=== PATIENT | female | born 1985 | race Caucasian/White ===

== ENCOUNTER 2019-09-28 08:30 | Emergency (ER) | payer OTHER ==
[~2019-09-28] VITALS: Ht 157.5 cm; Wt 73.6 kg
[2019-09-28] MEDS ORDERED: PRED20TA PO (08:40)
[2019-09-28] MEDS ORDERED: LEVA1TAB2 PO (08:40)
[2019-09-28] MEDS ORDERED: PANT40TA3 PO (08:40)
[2019-09-28] MEDS ORDERED: FOLI1TAB11 PO (08:40)
[2019-09-28 09:22] LABS: HEMATOCRIT 30.7 % (36.0-47.0); HEMOGLOBIN 10.1 g/dl (12.0-15.5); MEAN CORPUSCULAR HEMOGLOBIN 30.4 pg (27.0-33.0); MEAN CORPUSCULAR HGB CONC 32.9 g/dl (32.0-36.5); MEAN CORPUSCULAR VOLUME 92.5 fl (80.0-96.0); RED BLOOD COUNT 3.32 10^6/uL (4.00-5.40); WHITE BLOOD COUNT 5.2 10^3/uL (4.0-10.0)
[2019-09-28 09:40] LABS: PLATELET COUNT, AUTOMATED 10 10^3/uL (150-450)
[2019-09-28 09:49] LABS: LYMPHOCYTES 86 % (16-44); MONOCYTES 1 % (0-5); NEUTROPHILS 13 % (28-66); PLATELET ESTIMATE MARKED DECREASE (NORMAL)
[2019-09-28] MEDS ORDERED: diphenhydrAMINE 25MG CAP PO ONE (10:00)
[2019-09-28] MEDS ORDERED: ACETAMINOPHEN TAB 650MG DOSE (2X325MG) PO ONE (10:00)
[2019-09-28 14:10] VITALS: BP 129/59
[2019-09-28 15:30] VITALS: BP 118/58
== END 2019-09-28 15:45 | disposition home or self-care (01) ==
LOC: M ED 08:30
DX: D69.6 Thrombocytopenia, unspecified (principal); Z90.81 Acquired absence of spleen; F17.200 Nicotine dependence, unspecified, uncomplicated; Z79.51 Long term (current) use of inhaled steroids; Z88.1 Allergy status to other antibiotic agents
CPT/HCPCS: 36430; 85025; 85049; 85055; 86900; 86901; 99284; P9036

== ENCOUNTER 2020-10-02 12:47 | Observation (INO) | payer OTHER ==
[~2020-10-02] VITALS: Ht 157.5 cm; Wt 73.5 kg
[~2020-10-02 12:47] MED LIST changes: -ABIL1TAB13 PO; -ACYC1TAB PO; -CLOB0.0548 TOP; -CLON1TAB8 PO; -CRES1CAP2 PO; -CVS10CAP7 PO; -DAPS10TA PO; -DIPH25CA32 PO; -DIVA250T67 PO; -DOXE10CA PO; -FLUO40CA PO; -GABA-282 PO; -HYDR-4468 PO; -HYDR1CAP25 PO; -HYDR2TAB2 PO; -LEVO500T3 PO; -LINE1TAB6; -LORA-622 PO; -METO5TAB2 PO; -MIRT-62 PO; -MORP-69 PO; -ONDA8TAB10 PO; -PROP40TA62 PO; -PROT0.1O TOP; -SFHHYD1CR TOP; -VENC100T PO
[2020-10-02] MEDS ORDERED: DIVA250T67 PO (14:52)
[2020-10-02] MEDS ORDERED: PROP40TA62 PO (14:52)
[2020-10-02] MEDS ORDERED: CLON1TAB8 PO (14:52)
[2020-10-02] MEDS ORDERED: ACYC1TAB PO (14:52)
[2020-10-02] MEDS ORDERED: ONDA8TAB10 PO (14:56)
[2020-10-02] MEDS ORDERED: LINE1TAB6 (14:56)
[2020-10-02] MEDS ORDERED: GABA-282 PO (14:56)
[2020-10-02] MEDS ORDERED: VENC100T PO (14:56)
[2020-10-02] MEDS ORDERED: METO5TAB2 PO (14:56)
[2020-10-02] MEDS ORDERED: MORP-69 PO (14:56)
[2020-10-02] MEDS ORDERED: HYDR-4468 PO ×2 (14:56→17:27)
[2020-10-02] MEDS ORDERED: FLUO40CA PO (14:56)
[2020-10-02] MEDS ORDERED: DOXE10CA PO (14:56)
--- NOTE | 2020-10-02 17:02 | HPEPDOC ---
General Date of Admission Oct 02, 2020 at 12:48 Date of Service: Oct 02, 2020 Chief Complaint The patient is a 35-year-old female admitted with a reason for visit of Anemia, Severe Thrombocytopenia. Source: Patient History of Present Illness Mrs. 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 She is currently being treated at [facility] ([phone] Tena. Can also ask for Barb). She is on Cycle 3 Decitabine + Venetoclax 09/25/20. Afterwards, she usually feels fatigued. She is here visiting on vacations and came in to have her labs check. Her goal Hgb is 8 and her goal platelet is 50. She is below goal with Hgb 7.7 and platelet of 13. Patient otherwise feels fine. Denies fever, chest pain, dyspnea, abdominal pain, diarrhea, or dysuria. Otherwise, she requires irradiated and leuko-reduced blood and irradiated platelets from [facility]. Blood and platelets will take about 3 hours to arrive. Patient will be place in observation for transfusions. Of note, I spoke with Lindsay from [facility] who got in touch with Dr. Tena. Did not recommend Neupogen at this time. They are okay with her neutropenia. They also requested that we continued Venetoclax. Home Medications Scheduled Acyclovir (Acyclovir) 400 Mg Tablet, 400 MG PO BID, (Reported) Aripiprazole (Abilify) 2 Mg Tablet, 2 MG PO QHS, (Reported) Clonazepam (Clonazepam) 1 Mg Tablet, 1 MG PO BID, (Reported) Dapsone (Dapsone) 100 Mg Tablet, 100 MG PO DAILY, (Reported) Divalproex Sodium (Divalproex Sodium) 250 Mg Tablet.dr, 750 MG PO BID, (Repor benito) Fluoxetine Hcl (Fluoxetine HCl) 40 Mg Capsule, 40 MG PO DAILY, (Reported) Gabapentin (Gabapentin) 300 Mg Capsule, 300 MG PO TID, (Reported) Hydrocortisone (Hydrocortisone) 10 Mg Tablet, 20 MG PO DAILY, (Reported) 20MG IN THE MORNING, 10MG IN THE EVENING Hydrocortisone (Hydrocortisone) 10 Mg Tablet, 10 MG PO QPM, (Reported) 20MG IN THE MORNING, 10MG IN THE EVENING Isavuconazonium Sulfate (Cresemba) 186 Mg Capsule, 372 MG PO QHS, (Reported) Levofloxacin (Levofloxacin) 500 Mg Tablet, 500 MG PO DAILY, (Reported) Loratadine (Loratadine) 10 Mg Tablet, 10 MG PO QHS, (Reported) Mirtazapine (Remeron) 15 Mg Tablet, 15 MG PO QHS, (Reported) Pantoprazole Sodium (Pantoprazole Sodium) 40 Mg Tablet.dr, 40 MG PO DAILY, (Reported) Propranolol HCl (Propranolol HCl) 40 Mg Tablet, 40 MG PO BID, (Reported) HOLD FOR SBP < 100 Venetoclax (Venclexta) 100 Mg Tablet, 200 MG PO QPM, (Reported) Scheduled PRN Clobetasol Propionate/Emoll (Clobetasol Emollient 0.05% Crm) 0.05% 15GM Cream..g., 1 DOSE TOP BID PRN for RASH/ITCHING, (Reported) APPLY TO LEGS Diphenhydramine HCl (Diphenhydramine HCl) 25 Mg Capsule, 25 MG PO DAILY PRN for ITCHING, (Reported) TO BE TAKEN BEFORE RECEIVING BLOOD PRODUCTS Doxepin HCl (Doxepin HCl) 10 Mg Capsule, 10 MG PO QHS PRN for ITCHING, (Reported) Hydrocortisone (Hydrocortisone) 28 Gm Cream..g., 1 DOSE TOP BID PRN for REDNESS/IRRITATION, (Reported) APPLY TO AFFECTED AREAS Hydromorphone HCl (Hydromorphone HCl) 2 Mg Tablet, 1 MG PO TID PRN for PAIN LEVEL 8-10, (Reported) Hydroxyzine Pamoate (Hydroxyzine Pamoate) 25 Mg Capsule, 25 MG PO TID PRN for ANXIETY, (Reported) Melatonin (Melatonin) 10 Mg Capsule, 10 MG PO QHS PRN for SLEEP, (Reported) Metoclopramide HCl (Metoclopramide HCl) 5 Mg Tablet, 5 MG PO AC PRN for ABDOMINAL PAIN, (Reported) Morphine Sulfate (Morphine Sulfate ER) 15 Mg Tablet.er, 15 MG PO BID PRN for PAIN LEVEL 5-7, (Reported) Ondansetron HCl (Ondansetron HCl) 8 Mg Tablet, 8 MG PO TID PRN for NAUSEA OR VOMITING, (Reported) Tacrolimus (Protopic) 100 Gm Oint...g., 1 DOSE TOP BID PRN for SKIN GVHD, (Reported) APPLY TO LEGS Allergies Coded Allergies: Sulfa (Sulfonamide Antibiotics) (Verified Allergy, Mild, rash, 09/28/19) clindamycin (Verified Allergy, Mild, rash, 09/28/19) piperacillin (Verified Allergy, Mild, puffy eyes , 10/02/20) tazobactam (Verified Allergy, Mild, puffy eyes , 10/02/20) Past Medical History Medical History 1. ITP since the age of 14 2. 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 Chiari malformation 6. History of ICH Surgical History 1. Splenectomy 2. Breast reduction 3. Emergency Family History Father: History of HBP Mother: History of HBP Social History * Smoker: Denies Alcohol: Denies Drugs: denies A-FIB/CHADSVASC A-FIB History Current/History of A-Fib/PAF?: No Review of Systems Constitutional: Reports: Fatigue; Denies: Chills, Fever Eyes: Denies: Vision change ENT: Denies: Sore Throat Skin: Reports: Rash (GVHD of legs) Pulmonary: Denies: Dyspnea Cardiovascular: Denies: Chest Pain Gastrointestinal: Denies: Abdominal Pain, Diarrhea Genitourinary: Denies: Dysuria Neurological: Denies: Numbness Psych: Denies: Anxiety, Depression Physical Examination General Exam: Positive: Alert, Cooperative Eye Exam: Positive: EOMI; Negative: Sclera icteric ENT Exam: Positive: Atraumatic Neck Exam: Positive: Supple Chest Exam: Positive: Clear to auscultation; Negative: Rales, Rhonchi, Wheezing Heart Exam: Positive: Rate Normal, Regular Rhythm Abdomen Exam: Positive: Normal bowel sounds, Soft; Negative: Tenderness Extremity Exam: Positive: Edema Skin Exam: Positive: Rash (bilateral legs) Neuro Exam: Positive: Normal Speech, Cranial Nerves 3-12 NL Psych Exam: Positive: Mental status NL, Mood NL Vital Signs Vital Signs Date Time Temp Pulse Resp B/P (MAP) Pulse Ox O2 Delivery O2 Flow Rate FiO2 10/02/20 15:10 95 142/102 (115) 10/02/20 12:49 98.2 20 99 Room Air Laboratory Data Labs 24H Laboratory Tests 2 10/02/20 15:37: Assessment/Plan Mrs. 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 Patient most likely has chemotherapy induced pancytopenia. Otherwise patient feels fatigued. She is tolerated food. Patient will be transfused blood and platelets. Plan / VTE VTE Prophylaxis Ordered?: No VTE Exclusion Mechanical Proph: Bilateral Lower Ex Trauma VTE Exclusion Pharmacological: Thrombocytopenia Plan Plan 1. Chemo-induced pancytopenia -Goal Hgb 8 and goal platelet 50 per [facility] -Will transfused leukoreduced and irradiated blood and irradiated platelets. Will need to come from [facility] -Otherwise spoke with [facility]. They are okay with her neutropenia. No Neupogen. Requested that we continue her Venetoclax (patient own med) -Continue acyclovir, isavuconazonium (patient own med), and levofloxacin 2. Primary myelofibrosis converted to AML -Being managed at [facility] 3. ITP complicate by history of ICH -Transfusing irradiated platelets -No chemical DVT ppx -Continue hydrocortisone 4. 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 History of ICH -Continue divalproex -No anticoagulation 6. DVT ppx -Due to recent ICH, no heparin or enoxaparin -Due to GVHD of legs, no SCD or TEDs Disposition: Patient to be transfused blood and platelets from [facility]. Possible discharge home tomorrow HEATHER MOORE DO Oct 02, 2020 16:58
[2020-10-02 17:12] LABS: RSV AMPLIFICATION NEGATIVE (NEGATIVE)
[2020-10-02] MEDS ORDERED: MIRT-62 PO (17:27)
[2020-10-02] MEDS ORDERED: CVS10CAP7 PO (17:27)
[2020-10-02] MEDS ORDERED: HYDR1CAP25 PO (17:27)
[2020-10-02] MEDS ORDERED: DIPH25CA32 PO (17:27)
[2020-10-02] MEDS ORDERED: HYDR2TAB2 PO (17:27)
[2020-10-02] MEDS ORDERED: CRES1CAP2 PO (17:27)
[2020-10-02] MEDS ORDERED: SFHHYD1CR TOP (17:27)
[2020-10-02] MEDS ORDERED: LEVO500T3 PO (17:27)
[2020-10-02] MEDS ORDERED: DAPS10TA PO (17:27)
[2020-10-02] MEDS ORDERED: ABIL1TAB13 PO (17:27)
[2020-10-02] MEDS ORDERED: LORA-622 PO (17:27)
[2020-10-02] MEDS ORDERED: CLOB0.0548 TOP (17:27)
[2020-10-02] MEDS ORDERED: PROT0.1O TOP (17:27)
[2020-10-02] MEDS ORDERED: diphenhydrAMINE 25MG CAP PO PRN (17:40)
[2020-10-02] MEDS ORDERED: hydrOXYzine 25 MG TAB PO PRN (17:40)
[2020-10-02] MEDS ORDERED: MORPHINE 15 MG SA TAB PO PRN (17:40)
[2020-10-02] MEDS ORDERED: HYDROmorphone 2 MG TAB PO PRN (17:40)
[2020-10-02] MEDS ORDERED: CLOBETASOL PROPIONATE EMOLLIENT 0.05% CR 60 GM TOP PRN (17:40)
[2020-10-02] MEDS ORDERED: METOCLOPRAMIDE 5 MG TAB PO PRN (17:40)
[2020-10-02] MEDS ORDERED: HYDROCORTISONE 1% CREAM 30 GM TOP PRN (17:40)
[2020-10-02] MEDS ORDERED: RAMELTEON 8 MG TAB (ROZEREM) PO PRN (17:40)
[2020-10-02] MEDS ORDERED: ONDANSETRON 4 MG TAB PO PRN (17:40)
[2020-10-02] MEDS ORDERED: HYDROCORTISONE 10 MG TAB PO SCH (18:00)
[2020-10-02] MEDS ORDERED: PILL CUTTER 1 EACH XX PRN (18:25)
[2020-10-02 18:55] VITALS: BP 153/109
[2020-10-02] MEDS ORDERED: LORATADINE 10 MG TAB PO SCH (21:00)
[2020-10-02] MEDS ORDERED: ARIPiprazole 2 MG TAB PO SCH (21:00)
[2020-10-02] MEDS ORDERED: ENTER DRUG NAME HERE (PATIENT'S OWN MED) TOP SCH (21:00)
[2020-10-02] MEDS ORDERED: MIRTAZAPINE 15 MG TAB PO SCH (21:00)
[2020-10-02] MEDS ORDERED: ENTER DRUG NAME HERE (PATIENT'S OWN MED) PO SCH ×2 (21:00)
[2020-10-02] MEDS: ACYCLOVIR 200 MG CAPSULE PO SCH (21:13)
[2020-10-02] MEDS: GABAPENTIN 300 MG CAP PO SCH (21:14)
[2020-10-02] MEDS: clonazePAM 1 MG TAB PO SCH (21:14)
[2020-10-02] MEDS: PROPRANOLOL 20 MG TAB PO SCH (21:16)
[2020-10-02] MEDS: DIVALPROEX 250 MG TAB PO SCH (21:17)
[2020-10-02] MEDS ORDERED: diphenhydrAMINE 50MG/ML VIAL (J1200) IV ONE (21:35)
[2020-10-02 22:00] VITALS: BP 133/74
[2020-10-02] MEDS: ACETAMINOPHEN TAB 650MG DOSE (2X325MG) PO PRN (22:52)
[2020-10-03] VITALS (12 sets, daily range): BP systolic 127–154; BP diastolic 81–115
[2020-10-03] MEDS ORDERED: LevoFLOXacin 500 MG TABLET PO SCH (06:00)
[2020-10-03] MEDS ORDERED: HYDROCORTISONE 10 MG TAB PO SCH (08:00)
[2020-10-03] MEDS ORDERED: DAPSONE 100 MG TAB PO SCH (09:00)
[2020-10-03] MEDS ORDERED: diphenhydrAMINE 50MG/ML VIAL (J1200) IM ONE (09:00)
[2020-10-03] MEDS ORDERED: FLUoxetine 20 MG CAP PO SCH (09:00)
[2020-10-03] MEDS ORDERED: PANTOPRAZOLE 40MG TAB (PROTONIX) PO SCH (09:00)
[2020-10-03] MEDS ORDERED: diphenhydrAMINE 50MG/ML VIAL (J1200) IV ONE (09:30)
[2020-10-03] MEDS: ACETAMINOPHEN TAB 650MG DOSE (2X325MG) PO PRN (09:48)
[2020-10-03] MEDS: clonazePAM 1 MG TAB PO SCH (10:42)
[2020-10-03] MEDS: GABAPENTIN 300 MG CAP PO SCH (10:43)
[2020-10-03] MEDS: DIVALPROEX 250 MG TAB PO SCH (10:43)
[2020-10-03] MEDS: ACYCLOVIR 200 MG CAPSULE PO SCH (10:43)
[2020-10-03] MEDS: PROPRANOLOL 20 MG TAB PO SCH (10:45)
[2020-10-03 13:47] LABS: HEMATOCRIT 24.3 % (36.0-47.0); HEMOGLOBIN 8.1 g/dl (12.0-15.5); MEAN CORPUSCULAR HEMOGLOBIN 30.3 pg (27.0-33.0); MEAN CORPUSCULAR HGB CONC 33.3 g/dl (32.0-36.5); RED BLOOD COUNT 2.67 10^6/uL (4.00-5.40)
[2020-10-03 13:56] LABS: PLATELET COUNT, AUTOMATED 60 10^3/uL (150-450); WHITE BLOOD COUNT 0.4 10^3/uL (4.0-10.0)
[2020-10-03 14:07] LABS: BLOOD UREA NITROGEN 11 MG/DL (7-18); CALCIUM LEVEL 7.7 MG/DL (8.5-10.1); CARBON DIOXIDE LEVEL 27 MEQ/L (21-32); CHLORIDE LEVEL 111 MEQ/L (98-107); CREATININE FOR GFR 0.42 MG/DL (0.55-1.30); GLOMERULAR FILTRATION RATE > 60.0 (>60); GLUCOSE, FASTING 89 MG/DL (70-100); POTASSIUM SERUM 3.8 MEQ/L (3.5-5.1); SODIUM LEVEL 145 MEQ/L (136-145)
--- NOTE | 2020-10-03 15:30 | DS.PDOC ---
Discharge Summary General Date of Admission Oct 02, 2020 at 12:48 Date of Discharge 10/03/2020 Attending Physician: BELLA KUHN DO Discharge Summary PROCEDURES PERFORMED DURING STAY: 2 transfusions of irradiated platelets and 1 transfusion of irradiated blood ADMITTING DIAGNOSES: 1. Chemotherapy-induced pancytopenia. 2. Primary myelofibrosis converted to AML 3. ITP complicated by history of intracranial hemorrhage 4. Scwac-[id number]-ggkh disease due to bone marrow transplant 5. History of intracranial hemorrhage DISCHARGE DIAGNOSES: 1. Chemotherapy-induced pancytopenia, improved 2. Primary myelofibrosis converted to AML 3. ITP complicated by history of intracranial hemorrhage 4. [id number] disease due to bone marrow transplant 5. History of intracranial hemorrhage COMPLICATIONS/CHIEF COMPLAINT: Anemia, Severe Thrombocytopenia. HISTORY OF PRESENT ILLNESS: Patient is a 35-year-old female with ITP, primary myelofibrosis with converted to AML status post bone marrow transplant in March 2020 who presents with abnormal labs. Patient was found to be oliveros cytopenic. Patient is currently on cycle 3 of this to have been plus Bentyl plaques with her last cycle being on 09/25/2020. Patient usually feels fatigued. Patient is vacationing in [place], [place] when she came in to get her labs done and was found to have abnormal labs and was told to come to the emergency department. Patient's oncologist was contacted who recommended giving 2 units of platelets and 1 unit of packed red blood cells with a goal of getting her hemoglobin to 8 and her platelets to 50. They did not want any Neupogen and they wanted to continue with her home medications. HOSPITAL COURSE: Patient received her 2 transfusions of platelets and 1 transfusion of packed red blood cells and her hemoglobin came above the goals that were set by her oncologist. I spoke with her oncology practice who recommended that the patient can be discharged. Patient was deemed ready for discharge on 10/03/2020 and was discharged home. DISCHARGE MEDICATIONS: Please see below. ALLERGIES: Please see below. PHYSICAL EXAMINATION ON DISCHARGE: VITAL SIGNS: Please see below. General: Alert and oriented female patient who is laying in bed while walking to the room. Patient did not appear to be in any acute distress. HEENT: Normocephalic, atraumatic, moist mucous membranes. Neck: No lymphadenopathy or thyromegaly Cardiac: Regular rate and rhythm, no murmurs, normal S1, normal S2 Pulm: Clear to auscultation bilaterally. No wheezes, rhonchi, rales Abd: Nondistended, nontender to palpation, normal bowel sounds Ext: No edema bilateral lower extremities LABORATORY DATA: Please see below. IMAGING: No imaging was performed during her hospitalization PROGNOSIS: Fair ACTIVITY: As tolerated. DIET: Neutropenic diet DISCHARGE PLAN: Discharge home DISCHARGE INSTRUCTIONS: 1. Follow-up with your oncologist within 3 to 5 days. 2. Follow-up with your primary care provider within 5 to 7 days. ITEMS TO FOLLOWUP ON ON OUTPATIENT: 1. Continue to follow the patient's blood counts. DISCHARGE CONDITION: Stable. TIME SPENT ON DISCHARGE: Greater than 30 minutes. Vital Signs/I&Os Vital Signs Date Time Temp Pulse Resp B/P (MAP) Pulse Ox O2 Delivery O2 Flow Rate FiO2 10/03/20 14:00 98.2 103 17 144/87 (106) 92 Room Air I&O- Last 24 Hours up to 6 AM 10/03/20 05:59 Intake Total 1494 ml Balance 1494 ml Laboratory Data Labs 24H Laboratory Tests 2 10/02/20 15:37: Coronavirus (COVID-19)(PCR) NEGATIVE, Influenza Type A (RT-PCR) NEGATIVE, In fluenza Type B (RT-PCR) NEGATIVE, Respiratory Syncytial Virus (PCR) NEGATIVE 10/03/20 13:22: Nucleated Red Blood Cells % (auto) 0.0, Immature Platelet Fraction 1.0, Anion Gap 7L, Glomerular Filtration Rate > 60.0, Calcium Level 7.7L CBC/BMP Laboratory Tests 10/03/20 13:22 Discharge Medications Scheduled Acyclovir (Acyclovir) 400 Mg Tablet, 400 MG PO BID, (Reported) Aripiprazole (Abilify) 2 Mg Tablet, 2 MG PO QHS, (Reported) Clonazepam (Clonazepam) 1 Mg Tablet, 1 MG PO BID, (Reported) Dapsone (Dapsone) 100 Mg Tablet, 100 MG PO DAILY, (Reported) Divalproex Sodium (Divalproex Sodium) 250 Mg Tablet.dr, 750 MG PO BID, (Reported) Fluoxetine Hcl (Fluoxetine HCl) 40 Mg Capsule, 40 MG PO DAILY, (Reported) Gabapentin (Gabapentin) 300 Mg Capsule, 300 MG PO TID, (Reported) Hydrocortisone (Hydrocortisone) 10 Mg Tablet, 20 MG PO DAILY, (Reported) 20MG IN THE MORNING, 10MG IN THE EVENING Hydrocortisone (Hydrocortisone) 10 Mg Tablet, 10 MG PO QPM, (Reported) 20MG IN THE MORNING, 10MG IN THE EVENING Isavuconazonium Sulfate (Cresemba) 186 Mg Capsule, 372 MG PO QHS, (Reported) Levofloxacin (Levofloxacin) 500 Mg Tablet, 500 MG PO DAILY, (Reported) Loratadine (Loratadine) 10 Mg Tablet, 10 MG PO QHS, (Reported) Mirtazapine (Remeron) 15 Mg Tablet, 15 MG PO QHS, (Reported) Pantoprazole Sodium (Pantoprazole Sodium) 40 Mg Tablet.dr, 40 MG PO DAILY, (Reported) Propranolol HCl (Propranolol HCl) 40 Mg Tablet, 40 MG PO BID, (Reported) HOLD FOR SBP < 100 Venetoclax (Venclexta) 100 Mg Tablet, 200 MG PO QPM, (Reported) Scheduled PRN Clobetasol Propionate/Emoll (Clobetasol Emollient 0.05% Crm) 0.05% 15GM Cream..g., 1 DOSE TOP BID PRN for RASH/ITCHING, (Reported) APPLY TO LEGS Diphenhydramine HCl (Diphenhydramine HCl) 25 Mg Capsule, 25 MG PO DAILY PRN for ITCHING, (Reported) TO BE TAKEN BEFORE RECEIVING BLOOD PRODUCTS Doxepin HCl (Doxepin HCl) 10 Mg Capsule, 10 MG PO QHS PRN for ITCHING, (Reported) Hydrocortisone (Hydrocortisone) 28 Gm Cream..g., 1 DOSE TOP BID PRN for REDNESS/IRRITATION, (Reported) APPLY TO AFFECTED AREAS Hydromorphone HCl (Hydromorphone HCl) 2 Mg Tablet, 1 MG PO TID PRN for PAIN LEVEL 8-10, (Reported) Hydroxyzine Pamoate (Hydroxyzine Pamoate) 25 Mg Capsule, 25 MG PO TID PRN for ANXIETY, (Reported) Melatonin (Melatonin) 10 Mg Capsule, 10 MG PO QHS PRN for SLEEP, (Reported) Metoclopramide HCl (Metoclopramide HCl) 5 Mg Tablet, 5 MG PO AC PRN for ABDOMINAL PAIN, (Reported) Morphine Sulfate (Morphine Sulfate ER) 15 Mg Tablet.er, 15 MG PO BID PRN for PAIN LEVEL 5-7, (Reported) Ondansetron HCl (Ondansetron HCl) 8 Mg Tablet, 8 MG PO TID PRN for NAUSEA OR VOMITING, (Reported) Tacrolimus (Protopic) 100 Gm Oint...g., 1 DOSE TOP BID PRN for SKIN GVHD, (Reported) APPLY TO LEGS Allergies Coded Allergies: Sulfa (Sulfonamide Antibiotics) (Verified Allergy, Mild, rash, 09/28/19) clindamycin (Verified Allergy, Mild, rash, 09/28/19) piperacillin (Verified Allergy, Mild, puffy eyes , 10/02/20) tazobactam (Verified Allergy, Mild, puffy eyes , 10/02/20) BELLA KUHN DO Oct 03, 2020 15:30
== END 2020-10-03 15:50 | disposition home or self-care (01) ==
LOC: M ED 12:47 → M ED INP 12:48 → M MS5PR 19:05
PROVIDERS: ADMIT Internal Medicine; ATTEND Family Medicine
DX: D61.810 Antineoplastic chemotherapy induced pancytopenia (principal); D75.81 Myelofibrosis; C92.A0 Acute myeloid leukemia with multilineage dysplasia, not having achieved remission; D69.3 Immune thrombocytopenic purpura; Z86.79 Personal history of other diseases of the circulatory system; D89.813 Graft-versus-host disease, unspecified; Z79.899 Other long term (current) drug therapy; Z88.2 Allergy status to sulfonamides; Z88.0 Allergy status to penicillin; Z88.1 Allergy status to other antibiotic agents
CPT/HCPCS: 36430; 80048; 85027; 85049; 85055; 86850; 86900; 86901; 86920; 87631; 96374; 96376; 99284; J1200; P9036; P9040

== ENCOUNTER → 2020-10-02 | Outpatient (CLI) | payer OTHER ==
[~2020-10-02] MED LIST: ABIL1TAB13 PO; ACYC1TAB PO; CLOB0.0548 TOP; CLON1TAB8 PO; CRES1CAP2 PO; CVS10CAP7 PO; DAPS10TA PO; DIPH25CA32 PO; DIVA250T67 PO; DOXE10CA PO; FLUO40CA PO; FOLI1TAB11 PO; GABA-282 PO; HYDR-4468 PO; HYDR1CAP25 PO; HYDR2TAB2 PO; LEVA1TAB2 PO; LEVO500T3 PO; LINE1TAB6; LORA-622 PO; METO5TAB2 PO; MIRT-62 PO; MORP-69 PO; ONDA8TAB10 PO; PANT40TA29 PO; PRED20TA PO; PROP40TA62 PO; PROT0.1O TOP; SFHHYD1CR TOP; VENC100T PO
[2020-10-02 12:13] LABS: HEMATOCRIT 23.9 % (36.0-47.0); HEMOGLOBIN 7.7 g/dl (12.0-15.5); LYMPH # 0.4 10^3/uL (1.5-5.0); LYMPH % 94.7 % (24.0-44.0); MEAN CORPUSCULAR HEMOGLOBIN 30.4 pg (27.0-33.0); MEAN CORPUSCULAR HGB CONC 32.2 g/dl (32.0-36.5); MEAN CORPUSCULAR VOLUME 94.5 fl (80.0-96.0); MONO % 2.6 % (2.0-8.0); NEUTROPHILS % 2.7 % (36.0-66.0); RED BLOOD COUNT 2.53 10^6/uL (4.00-5.40)
[2020-10-02 12:21] LABS: PLATELET COUNT, AUTOMATED 13 10^3/uL (150-450); WHITE BLOOD COUNT 0.4 10^3/uL (4.0-10.0)
[2020-10-02 12:49] LABS: ALBUMIN 2.7 GM/DL (3.2-5.2); ALT/SGPT 17 U/L (12-78); BILIRUBIN,TOTAL 0.5 MG/DL (0.2-1.0); BLOOD UREA NITROGEN 14 MG/DL (7-18); CALCIUM LEVEL 7.9 MG/DL (8.5-10.1); CARBON DIOXIDE LEVEL 26 MEQ/L (21-32); CHLORIDE LEVEL 110 MEQ/L (98-107); GLOMERULAR FILTRATION RATE > 60.0 (>60); GLUCOSE, FASTING 97 MG/DL (70-100); LDH LACTATE DEHYDROGENASE 437 U/L (84-246); POTASSIUM SERUM 3.6 MEQ/L (3.5-5.1); SODIUM LEVEL 143 MEQ/L (136-145); TOTAL PROTEIN 5.6 GM/DL (6.4-8.2)
== END ==
LOC: M LAB 11:22
DX: C92.00 Acute myeloblastic leukemia, not having achieved remission (principal); S06.899A Other specified intracranial injury with loss of consciousness of unspecified duration, initial encounter; X58.XXXA Exposure to other specified factors, initial encounter; Y92.9 Unspecified place or not applicable

== ENCOUNTER 2020-10-05 10:01 | Observation (INO) | payer OTHER ==
[~2020-10-05] VITALS: Ht 157.5 cm; Wt 73.8 kg
[~2020-10-05 10:01] MED LIST changes: +ABIL1TAB13 PO; +ACYC1TAB PO; +CLOB0.0548 TOP; +CLON1TAB8 PO; +CRES1CAP2 PO; +CVS10CAP7 PO; +DAPS10TA PO; +DIPH25CA32 PO; +DIVA250T67 PO; +DOXE10CA PO; +FLUO40CA PO; +GABA-282 PO; +HYDR-4468 PO; +HYDR1CAP25 PO; +HYDR2TAB2 PO; +LEVO500T3 PO; +LINE1TAB6; +LORA-622 PO; +METO5TAB2 PO; +MIRT-62 PO; +MORP-69 PO; +ONDA8TAB10 PO; +PROP40TA62 PO; +PROT0.1O TOP; +SFHHYD1CR TOP; +VENC100T PO
[2020-10-05 11:22] LABS: HEMATOCRIT 21.2 % (36.0-47.0); LYMPH # 0.3 10^3/uL (1.5-5.0); LYMPH % 84.2 % (24.0-44.0); MEAN CORPUSCULAR HGB CONC 32.5 g/dl (32.0-36.5); MEAN CORPUSCULAR VOLUME 92.2 fl (80.0-96.0); MONO # 0.1 10^3/uL (0.0-0.8); MONO % 13.2 % (2.0-8.0); NEUTROPHILS % 2.6 % (36.0-66.0)
[2020-10-05 11:31] LABS: HEMOGLOBIN 6.9 g/dl (12.0-15.5); PLATELET COUNT, AUTOMATED 11 10^3/uL (150-450); WHITE BLOOD COUNT 0.4 10^3/uL (4.0-10.0)
--- NOTE | 2020-10-05 14:05 | HPE ---
HISTORY AND PHYSICAL DATE OF ADMISSION: 10/05/2020 HISTORY OF PRESENT ILLNESS: Maru Wiggins is a 35-year-old who has a history of ITP, primary myelofibrosis, which converted to AML now status post bone marrow transplant in March 2020. 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 She also has a history of Chiari malformation and history of intracranial hemorrhage. Has had a recurrent problem with pancytopenia. She is on cycle three of decitabine plus venetoclax with last dose 09/25/2020. She was just admitted 09/02/2020, for pancytopenia, received platelets with blood and was discharged. She had labs today that showed significant pancytopenia and she is being admitted for more blood and platelets. She is not having any fever, chills, cough, frequency, urgency, dysuria, diarrhea, sore throat, epistaxis, rectal bleeding, or urinary bleeding. PAST SURGICAL HISTORY: 1. Splenectomy. 2. Mammoplasty. 3. . MEDICATIONS: 1. Acyclovir 40 mg b.i.d. 2. Abilify 2 mg q. h.s. 3. Clonazepam 1 mg b.i.d. 4. Dapsone 100 mg daily. 5. Divalproex acid 750 mg b.i.d. 6. Gabapentin 300 mg t.i.d. 7. Hydrocortisone 20 mg in the morning and 10 mg in the evening. 8. Cresemba 186 mg capsules, 372 mg q. h.s. 9. Levaquin 500 mg daily. 10. Loratadine 10 mg daily. 11. Remeron 15 mg q. h.s. 12. Protonix 40 mg daily. 13. Propranolol 40 mg b.i.d. 14. Venclexta 200 mg at bedtime. ALLERGIES: SULFA CAUSED A RASH. CLINDAMYCIN CAUSED A RASH. PIPERACILLIN CAUSED PUFFINESS AROUND HER EYES. TAZOBACTAM CAUSED PUFFINESS AROUND HER EYES ON 10/02/2020. FAMILY HISTORY: Both parents had hypertension. SOCIAL HISTORY: Does not smoke or drink any alcohol. PHYSICAL EXAMINATION: VITAL SIGNS: Afebrile 97.7, blood pressure 169/117, pulse 105, respiratory rate 20, 99% O2 saturation. GENERAL: She is lying in bed in no distress. HEENT: Unremarkable. NECK: Supple. LUNGS: Clear. HEART: Regular without murmur. ABDOMEN: Soft and nontender with no masses. EXTREMITIES: No peripheral edema. SKIN: No rash. NEUROLOGIC: Nonfocal. LABORATORY DATA: White count 0.4. Hemoglobin 6.9, platelets 11,000 (discharge hemoglobin was 8.1 and discharge platelets were 60,000). Sodium 135, potassium 3.8, BUN 11, creatinine 0.4, glucose 89. COVID test was negative on 10/02. 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 PLAN: She will be admitted to the observation bed. We have ordered blood product through the emergency room. She needs leukocyte reduced and irradiated blood and irradiated platelets. These have already been ordered by the emergency room. They previously have not wanted Neupogen or other stimulating factors for her neutropenia. We will continue her usual medications.
[2020-10-05] MEDS ORDERED: diphenhydrAMINE 25MG CAP PO PRN (14:45)
[2020-10-05] MEDS ORDERED: hydrOXYzine 25 MG TAB PO PRN (14:45)
[2020-10-05] MEDS ORDERED: ONDANSETRON 4 MG TAB PO PRN (14:45)
[2020-10-05] MEDS ORDERED: HYDROCORTISONE 1% CREAM 30 GM TOP PRN (14:45)
[2020-10-05] MEDS ORDERED: CLOBETASOL PROPIONATE EMOLLIENT 0.05% CR 60 GM TOP PRN (14:45)
[2020-10-05] MEDS ORDERED: METOCLOPRAMIDE 5 MG TAB PO PRN (14:45)
[2020-10-05] MEDS ORDERED: **NOTE PATIENT COMMENT** MISC XX SCH (14:45)
[2020-10-05] MEDS ORDERED: PROTOPIC TOP PRN (15:35)
[2020-10-05] MEDS ORDERED: PILL CUTTER 1 EACH XX ONE (16:18)
[2020-10-05] MEDS: HYDROmorphone 2 MG TAB PO PRN (16:26)
[2020-10-05] MEDS: GABAPENTIN 300 MG CAP PO SCH ×2 (16:26→22:41)
[2020-10-05 18:37] LABS: RSV AMPLIFICATION NEGATIVE (NEGATIVE)
[2020-10-05] MEDS: ACETAMINOPHEN TAB 650MG DOSE (2X325MG) PO PRN (19:04)
[2020-10-05] MEDS ORDERED: diphenhydrAMINE 50MG/ML VIAL (J1200) IV ONE (19:25)
[2020-10-05 20:57] VITALS: BP 149/81
[2020-10-05] MEDS ORDERED: MIRTAZAPINE 15 MG TAB PO SCH (21:00)
[2020-10-05] MEDS ORDERED: CRESEMBA 186 MG PO SCH (21:00)
[2020-10-05] MEDS ORDERED: LORATADINE 10 MG TAB PO SCH (21:00)
[2020-10-05] MEDS ORDERED: ARIPiprazole 2 MG TAB PO SCH (21:00)
[2020-10-05] MEDS ORDERED: VENETOCLAX 100MG TABLET (PATIENT'S OWN MED) PO SCH (21:00)
[2020-10-05] MEDS ORDERED: HYDROCORTISONE 10 MG TAB PO SCH (21:00)
[2020-10-05 21:15] VITALS: BP 123/78
[2020-10-05 21:52] VITALS: BP 127/88
[2020-10-05 22:04] VITALS: BP 125/85
[2020-10-05] MEDS: clonazePAM 1 MG TAB PO SCH (22:42)
[2020-10-05] MEDS: MORPHINE 15 MG SA TAB PO SCH (22:43)
[2020-10-05] MEDS: ACYCLOVIR 200 MG CAPSULE PO SCH (23:50)
[2020-10-05] MEDS: PROPRANOLOL 20 MG TAB PO SCH (23:51)
[2020-10-05] MEDS: DIVALPROEX 250 MG TAB PO SCH (23:51)
[2020-10-06] VITALS (8 sets, daily range): BP systolic 120–152; BP diastolic 82–100
[2020-10-06] MEDS: ACETAMINOPHEN TAB 650MG DOSE (2X325MG) PO PRN (00:05)
[2020-10-06] MEDS ORDERED: FIORICET TAB PO ONE (01:10)
[2020-10-06] MEDS ORDERED: diphenhydrAMINE 50MG/ML VIAL (J1200) IV PRN (01:10)
[2020-10-06] MEDS: HYDROmorphone 2 MG TAB PO PRN (02:53)
[2020-10-06] MEDS ORDERED: **hydrALAZINE HCL** 25 MG TAB PO ONE (03:00)
[2020-10-06] MEDS ORDERED: LevoFLOXacin 500 MG TABLET PO SCH (06:00)
[2020-10-06] MEDS: ACYCLOVIR 200 MG CAPSULE PO SCH (08:53)
[2020-10-06] MEDS: DIVALPROEX 250 MG TAB PO SCH (08:53)
[2020-10-06] MEDS: clonazePAM 1 MG TAB PO SCH (08:53)
[2020-10-06] MEDS: GABAPENTIN 300 MG CAP PO SCH (08:53)
[2020-10-06] MEDS ORDERED: PANTOPRAZOLE 40MG TAB (PROTONIX) PO SCH (09:00)
[2020-10-06] MEDS: MORPHINE 15 MG SA TAB PO SCH (09:00)
[2020-10-06] MEDS ORDERED: DAPSONE 100 MG TAB PO SCH (09:00)
[2020-10-06] MEDS ORDERED: HYDROCORTISONE 10 MG TAB PO SCH (09:00)
[2020-10-06] MEDS ORDERED: FLUoxetine 20 MG CAP PO SCH (09:00)
[2020-10-06 09:17] LABS: HEMATOCRIT 26.1 % (36.0-47.0); HEMOGLOBIN 8.5 g/dl (12.0-15.5); MEAN CORPUSCULAR HEMOGLOBIN 30.1 pg (27.0-33.0); MEAN CORPUSCULAR HGB CONC 32.6 g/dl (32.0-36.5); MEAN CORPUSCULAR VOLUME 92.6 fl (80.0-96.0); RED BLOOD COUNT 2.82 10^6/uL (4.00-5.40)
[2020-10-06 09:24] LABS: PLATELET COUNT, AUTOMATED 55 10^3/uL (150-450); WHITE BLOOD COUNT 0.4 10^3/uL (4.0-10.0)
[2020-10-06 09:39] LABS: BLOOD UREA NITROGEN 16 MG/DL (7-18); CALCIUM LEVEL 7.9 MG/DL (8.5-10.1); CARBON DIOXIDE LEVEL 27 MEQ/L (21-32); CHLORIDE LEVEL 111 MEQ/L (98-107); CREATININE FOR GFR 0.56 MG/DL (0.55-1.30); GLOMERULAR FILTRATION RATE > 60.0 (>60); GLUCOSE, FASTING 82 MG/DL (70-100); POTASSIUM SERUM 4.1 MEQ/L (3.5-5.1); SODIUM LEVEL 147 MEQ/L (136-145)
[2020-10-06] MEDS: PROPRANOLOL 20 MG TAB PO SCH (09:42)
--- NOTE | 2020-10-06 11:10 | DSES ---
DISCHARGE SUMMARY DATE OF ADMISSION: 10/05/2020 DATE OF DISCHARGE: 10/06/2020 PRINCIPAL DIAGNOSIS: Critical thrombocytopenia and anemia. 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 HISTORY: The patient was sent to the Emergency Room for transfusion of blood and platelets after routine labs showed severe pancytopenia, critical thrombocytopenia, severe anemia, and stable but critical leukopenia. HOSPITAL COURSE: She was admitted for transfusion. She needs leukocyte-reduced and irradiated blood and irradiated platelets. These were received. She was transfused, tolerated this well. On the day of discharge her white count remained 0.4 without signs of sepsis. Her hemoglobin is up to 8.5 and platelets are 55. DISPOSITION: She is discharged home in improved and stable condition. Resume all the medicines she was taking prior to admission. Her activity is as tolerated and she is on a regular diet. She will follow up with her oncologist as previously scheduled.
== END 2020-10-06 10:38 | disposition home or self-care (01) ==
LOC: M ED 10:01 → M ED INP 10:02 → M MSPAV 22:04
PROVIDERS: ADMIT Family Medicine; ATTEND Family Medicine
DX: D69.59 Other secondary thrombocytopenia (principal); D64.9 Anemia, unspecified; D70.1 Agranulocytosis secondary to cancer chemotherapy; C93.90 Monocytic leukemia, unspecified, not having achieved remission; D47.1 Chronic myeloproliferative disease; D69.3 Immune thrombocytopenic purpura; Z94.81 Bone marrow transplant status; D89.812 Acute on chronic graft-versus-host disease; Z86.79 Personal history of other diseases of the circulatory system; Z79.899 Other long term (current) drug therapy; Z79.2 Long term (current) use of antibiotics; Z88.2 Allergy status to sulfonamides; Z88.1 Allergy status to other antibiotic agents
CPT/HCPCS: 36415; 36430; 80048; 85025; 85027; 85049; 85055; 86850; 86900; 86901; 86920; 87631; 96374; 99284; J1200; P9034; P9040